=== PATIENT | male | born 1960 | race Caucasian/White ===

== ENCOUNTER 2018-12-04 08:20 | Inpatient (IN) ==
[2018-11-27 11:03] LABS: Basophils # (Auto) 0 K/mcL (0.0-0.3); Basophils % (Auto) 0.4 % (0.0-2.0); Eosinophils # (Auto) 0.1 K/mcL (0.0-0.7); Eosinophils % (Auto) 2.2 % (0.0-7.0); Granulocytes % (Auto) 54.5 % (38.0-78.0); Lymphocytes # (Auto) 1.8 K/mcL (1.5-4.8); Lymphocytes % (Auto) 35.9 % (15.5-49.0); Mean Cell Volume 90.9 fL (80.0-100.0); Mean Corpuscular HGB Conc 32.8 g/dL (31.0-36.0); Monocytes # (Auto) 0.4 K/mcL (0.1-0.9); Platelet Count 278 K/mcL (140-440); RBC 5.03 M/mcL (4.50-5.90); Red Cell Distribution Width 12.7 % (11.5-14.5)
[2018-11-27 11:18] LABS: Blood Urea Nitrogen 9 mg/dl (6-20)
[2018-11-27 11:19] LABS: Appearance,Urine HAZY; Bilirubin,Urine NEG (NEG); Color,Urine YELLOW; Glucose,Urine (UA) NEGATIVE (NEG); Leukocyte Esterase,Urine NEG /uL (NEG); Protein,Urine NEG (NEG); Urine Blood NEG mg/dL (<0.03); Urobilinogen,Urine NEG (NEG)
[~2018-12-04 08:20] MED LIST: 0.9 % SODIUM CHLORIDE 9 ML, KETOROLAC 30 MG, ROPIVACAINE HCL/PF 49.5 ML, EPINEPHrine 0.... IJ SCH; ACETAMINOPHEN 500 MG TABLET PO SCH; CELECOXIB 200 MG CAPSULE PO SCH; PREGABALIN 75 MG CAPSULE PO SCH; ceFAZolin 1 GM VIAL IV SCH; oxyCODONE 10 MG TAB.ER.12H PO SCH
[2018-12-04] MEDS ORDERED: GLYCOPYRROLATE 0.2 MG/ML VIAL IV ONE (11:50)
[2018-12-04] MEDS ORDERED: ROPIVACAINE HCL/PF 20 ML VIAL IJ ONE (11:50)
[2018-12-04] MEDS ORDERED: ONDANSETRON 4 MG/2 ML VIAL IV ONE (11:50)
[2018-12-04] MEDS ORDERED: MIDAZOLAM 5 MG/5 ML VIAL IV ONE (11:50)
[2018-12-04] MEDS ORDERED: TRANEXAMIC ACID 1,000 MG/10 ML VIAL IV ONE ×2 (11:50→13:58)
[2018-12-04] MEDS ORDERED: PROPOFOL 200 MG/20 ML VIAL IV ONE (11:50)
[2018-12-04] MEDS ORDERED: LIDOCAINE HCL/PF 100 MG/5 ML SYRINGE IV ONE (11:50)
[2018-12-04] MEDS ORDERED: DEXAMETHASONE 10 MG/ML VIAL IV ONE (11:50)
[2018-12-04] MEDS ORDERED: GENTAMICIN SULFATE 800 MG/20 ML VIAL IR ONE (12:20)
[2018-12-04] MEDS ORDERED: IPRATROPIUM/ALBUTEROL 3 ML AMPUL.NEB NEB PRN (12:46)
[2018-12-04] MEDS ORDERED: METOPROLOL TARTRATE 5 MG/5 ML VIAL IV PRN (12:46)
[2018-12-04] MEDS ORDERED: METHOCARBAMOL 1,000 MG/10 ML VIAL IV PRN (12:46)
[2018-12-04] MEDS ORDERED: ATROPINE SULFATE 0.4 MG/ML VIAL IV PRN (12:46)
[2018-12-04] MEDS ORDERED: PROMETHAZINE 25 MG/ML VIAL IV PRN (12:46)
[2018-12-04] MEDS ORDERED: fentaNYL 100 MCG/2 ML VIAL IV PRN (12:46)
[2018-12-04] MEDS ORDERED: MEPERIDINE 25 MG/ML SYRINGE IV PRN (12:46)
[2018-12-04] MEDS ORDERED: HYDROmorphone 2 MG/ML VIAL IV PRN ×2 (12:46→13:58)
[2018-12-04] MEDS ORDERED: ONDANSETRON 4 MG/2 ML VIAL IV PRN ×2 (12:46→13:58)
[2018-12-04] MEDS ORDERED: diphenhydrAMINE 50 MG/ML VIAL IV PRN (12:46)
[2018-12-04] MEDS ORDERED: FLUMAZENIL 0.1 MG/ML ML IV PRN (12:46)
[2018-12-04] MEDS ORDERED: NALOXONE HCL 0.4 MG/ML VIAL IV PRN (12:46)
[2018-12-04] MEDS ORDERED: ePHEDrine 50 MG/ML AMPUL IV PRN (12:46)
[2018-12-04] MEDS ORDERED: LACTATED RINGERS 1,000 ML IV SCH (13:00)
--- NOTE | 2018-12-04 13:57 | Brief Operative Note ---
Date of procedure: 12/04/18 Pre-op diagnosis: right knee djd Post-op diagnosis: same Procedure: right knee tka with marleny robot Grafts/Implants: Yes Anesthesia: GETA Complications: none Complications Description: 12/04/18 13:57 none Surgeon: Sridhar Martinez Bit Tapper: Ronald Everett Estimated blood loss (cc): 50 Tourniquet Time (Minutes): 65 Specimens Removed/Pathology: none sent Condition: stable Disposition: PACU
[2018-12-04] MEDS ORDERED: HYDROcodone/APAP 10/325MG TABLET PO PRN (13:58)
[2018-12-04] MEDS ORDERED: BISACODYL 10 MG SUPP.RECT PR PRN (13:58)
[2018-12-04] MEDS ORDERED: MAGNESIUM HYDROXIDE 30 ML ORAL.SUSP PO PRN (13:58)
[2018-12-04] MEDS ORDERED: ACETAMINOPHEN 325 MG TABLET PO PRN (13:58)
[2018-12-04] MEDS ORDERED: POLYETHYLENE GLYCOL 3350 17 GM PACKET PO PRN (13:58)
[2018-12-04] MEDS ORDERED: TEMAZEPAM 15 MG CAPSULE PO PRN (13:58)
[2018-12-04] MEDS ORDERED: FLEETS ADULT ENEMA PR PRN (13:58)
[2018-12-04] MEDS ORDERED: BENZOCAINE/MENTHOL 1 LOZENGE PO PRN (13:58)
--- NOTE | 2018-12-04 14:37 | XRay Report ---
HISTORY: Postop right knee replacement FINDINGS: There is a well-positioned right total knee prosthesis. No fracture is present and there are no abnormal soft tissue calcifications around the joint. There are a few vascular calcifications in the superficial femoral and popliteal arteries. IMPRESSION: Well-positioned knee prosthesis Interpreted and Authenticated by: Jarrod Huynh 12/04/18
--- NOTE | 2018-12-04 15:31 | Operative Note ---
DATE OF OPERATION: 12/04/2018 PREOPERATIVE DIAGNOSIS: Right knee degenerative arthritis medial compartment. POSTOPERATIVE DIAGNOSES: Right knee degenerative arthritis medial compartment with the addition of additional arthritis laterally and IT band syndrome. PROCEDURE: Right total knee arthroplasty with the Jaylon robot and IT band lengthening. SURGEON: Sridhar Martinez M.D. WORK MEASUREMENT ENGINEER: Ronald Everett PA-C. ANESTHESIA: General LMA anesthesia. COMPLICATIONS: None. TOTAL TOURNIQUET TIME: 65 minutes with tourniquet pressure 250 pounds of pressure. ESTIMATED BLOOD LOSS: About 50 mL. IMPLANTS: Cemented [place] Triathlon total knee arthroplasty with a 9 mm poly with a deep dish, as well as a 33 mm patellar button. DESCRIPTION OF PROCEDURE: The patient was brought to the operating room and put to sleep with general LMA anesthesia. Once asleep, the patient had the right leg sterilely prepped and draped in the usual sterile fashion. Timeout performed and confirmed this as the operative site. Preop antibiotics and tranexamic acid had been given. The leg was exsanguinated up to 250 pounds of pressure as it was elevated and then we placed Ioban over the skin. We made midline incision, a midvastus approach. We evaluated all the structures of the knee which revealed severe arthritis in the medial compartment, no significant arthritis of the patellofemoral joint, some grade III and grade IV areas of chondral damage of the sulcus terminalis. We then put two pins above and below the knee, registered the center hip rotation, registered thirty points on the femur and the tibia and intra-articular pins. Medial and lateral malleoli were registered and then we made our bony cuts using the robot after it was registered. We made our bony cuts of the tibia and the femur. These bony fragments were removed, preserving the PCL. We set rotation using the robot and then we irrigated thoroughly. The patient did have a contracture of the knee, about 10 degrees of flexion contracture. We corrected this by 1 mm shortening on the femoral side. We then trialed the components. The tibial baseplate was tapped into place, as well as the femoral component which was drilled for peg holes. We lateralized as far as we could lateral. We then prepared the patella. The knee with a 9 mm poly achieved full range of motion and normal alignment with 2 degrees of varus. We then prepared the patella which measured at 22 mm. This was cut to 13 mm in a horizontal fashion and then we placed the peg holes. We trialed this. It tracked perfectly. We irrigated thoroughly and cemented into place the above-mentioned implants. A 9 mm poly insert with a deep dish was required just to protect from any failure of the PCL. We irrigated thoroughly and removed any excess debris, thorough irrigation again, and then we closed the capsule with #1 Stratafix x2. At this point, I made a second incision laterally over the IT band, about a 1-inch incision. I identified the IT band and a Z-plasty lengthening by poking holes in this and actually releasing it in a Z-fashion was performed using a 10 blade and tenotomy scissors. We irrigated thoroughly. No significant bleeding. We then closed the skin with 2-0 Vicryl. The skin was closed with 2-0 Vicryl and adhesive closure. The patient tolerated this well. There was no complication. Tourniquet time was 65 minutes. RBH:rory Job ID: [id number] Doc ID: [id number] Sridhar Martinez MD
[2018-12-04] MEDS: 0.9 % SODIUM CHLORIDE 10 ML SYRINGE IV SCH ×2 (15:50→23:20)
[2018-12-04] MEDS: 0.45 % SODIUM CHLORIDE 1,000 ML IV SCH (17:59)
[2018-12-04] MEDS: KETOROLAC 30 MG/ML VIAL IV SCH ×2 (17:59→23:19)
[2018-12-04] MEDS ORDERED: ATORVASTATIN 20 MG TABLET PO SCH (21:00)
[2018-12-04] MEDS ORDERED: SENNOSIDES 1 TABLET PO SCH (21:00)
[2018-12-04] MEDS: ceFAZolin 1 GM VIAL IV SCH (21:22)
[2018-12-04] MEDS: ASPIRIN 325 MG ENTERIC COATED TABLET PO SCH (21:23)
[2018-12-04] MEDS: DOCUSATE SODIUM 100 MG CAPSULE PO SCH (21:23)
[2018-12-05] MEDS: 0.45 % SODIUM CHLORIDE 1,000 ML IV SCH (00:10)
[2018-12-05] MEDS: ceFAZolin 1 GM VIAL IV SCH (04:13)
[2018-12-05] MEDS: KETOROLAC 30 MG/ML VIAL IV SCH ×2 (05:52→11:19)
[2018-12-05] MEDS: 0.9 % SODIUM CHLORIDE 10 ML SYRINGE IV SCH (05:53)
--- NOTE | 2018-12-05 07:39 | Orthopedic Progress Note ---
Subjective Patient information: Note initiated : 12/05/18 at 7:38 am Service Date, if different from initiated Date: [] Patient: Nigel Stover 58 y/o M admitted on 12/04/18 for Right Uni Medial Jaylon Knee vs. Total Knee. Chief Complaint: [Pt is stable this morning on post operative day 1 without any significant concerns or complaints. Patients vital signs have remained stable. Patients dressing is dry and is grossly intact from a neurov ascular and motor standpoint. Patients 10 point ROS is otherwise negative. ] Objective Vital signs: Vital Signs Temp Pulse Resp BP BP Pulse Ox 12/05/18 07:35 98.2 F 80 12 105/69 99 12/05/18 03:15 96 12/05/18 03:14 97.6 F 79 12 115/65 96 12/04/18 23:15 98.2 F 92 H 12 109/62 95 12/04/18 21:00 95 12/04/18 19:42 97.4 F 88 12 115/71 96 12/04/18 17:44 86 12/04/18 16:46 86 122/66 97 12/04/18 16:16 91 H 117/68 97 12/04/18 16:00 97.0 F 94 H 16 135/78 12/04/18 15:31 88 126/70 95 12/04/18 15:16 87 131/73 94 12/04/18 15:02 100 H 136/74 91 12/04/18 14:46 105 H 120/72 96 12/04/18 14:30 98.1 F 95 H 16 136/71 95 12/04/18 14:15 97.5 F 94 H 18 134/71 100 12/04/18 14:11 94 H 18 132/72 98 12/04/18 14:06 120 H 20 140/69 96 12/04/18 14:01 98.5 F 116 H 20 118/76 95 12/04/18 13:58 98.1 F 95 H 16 136/71 97 12/04/18 08:45 97.1 F 81 14 145/85 97 Intake and Output 12/04/18 12/05/18 12/05/18 21:59 05:59 13:59 Intake Total 1850 1750 Output Total 1101 1700 Balance 749 50 Intake: IV 1000 Sodium Chloride 0.45% 1,000 ml 1000 @ 100 mls/hr IV .Q10H PAWAN Rx#: [id number] Oral 350 750 IV - Manual Only 1500 Output: Urine Catheter Amount 1100 Void Amount 1700 # of times incontinent of urine 1 Other: Urine Appearance Clear Clear Urine Color Pale Straw Urine Odor Normal Weight 165 lb Intake & Output: Intake & Output 12/04/18 12/05/18 12/05/18 21:59 05:59 13:59 Intake Total 1850 1750 Output Total 1101 1700 Balance 749 50 Weight 165 lb Intake: IV 1000 Sodium Chloride 0.45% 1,000 ml 1000 @ 100 mls/hr IV .Q10H PAWAN Rx#: [id number] Oral 350 750 IV - Manual Only 1500 Output: Urine Catheter Amount 1100 Void Amount 1700 # of times incontinent of urine 1 Other: Urine Appearance Clear Clear Urine Color Pale Straw Urine Odor Normal Incision: Yes healing Incision clean and dry: Yes Dressing: Yes clean Weight bearing status: full Neurological exam IM: Yes motor sensory intact, Yes neurovascular intact Extremities exam IM: Yes Foot pink and warm, Yes neurovascular intact - Labs CBC & BMP: 12/05/18 05:00 11/27/18 09:18 Labs: Orthopedic Labs 11/27/18 09:19 PT 12.5 INR 0.9 12/05/18 11/27/18 05:00 09:19 Hgb 15.0 Hct 40.4 L 45.7 Assessment and Plan (1) Hx of total knee arthroplasty The patient has been educated regarding dressing care, Physical Therapy recommendations, home exercises, restrictions, and follow up appointments. The patient has had all necessary DME prescribed. The patient has remained relative ly stable during their hospital course. Status: Acute
--- NOTE | 2018-12-05 07:42 | Discharge Summary ---
Ortho Discharge - TKA - Patient Instructions Diet: Regular Diet Activity: activity as tolerated, weight bearing as tolerated Total Knee Protocol: For Total Knee: Start ROM YESSENIA with stationary bike or rocking chair. Work on gaining full extension of knee. Posterior dislocation precautions provided. Hip abductor strengthening and gait training instructions provided. Apply Cryocuff as instructed. Dressing Care: May shower in 2 days - Problem Maintenance (1) Hx of total knee arthroplasty Status: Acute - Follow Up Plan Follow Up Appointments: Sridhar Martinez MD [Physician] - 12/19/18 2:20 pm Disposition: Home, Self-Care Prognosis: Good Rehab Potential: Good I certify that the patient requires SNF services: No Overall status at discharge: patient is progressing back to baseline - Orders For Discharge Prescriptions: Aspirin [Ecotrin] 325 mg PO BID #60 tab.ec Docusate Sodium [Colace] 100 mg PO BID #60 capsule HYDROcodone/APAP 10/325MG [[place] 10-325Mg] 1 - 2 tab PO Q4HP PRN #75 tab PRN Reason: Pain Level 3-6
[2018-12-05] MEDS ORDERED: predniSONE 5 MG TABLET PO SCH (08:00)
[2018-12-05] MEDS: ASPIRIN 325 MG ENTERIC COATED TABLET PO SCH (08:52)
[2018-12-05] MEDS: DOCUSATE SODIUM 100 MG CAPSULE PO SCH (08:53)
[2018-12-05] MEDS ORDERED: VITAMIN D3 1,000 UNIT TABLET PO SCH (09:00)
[2018-12-05] MEDS ORDERED: AL HYDROX PO SCH (09:00)
[2018-12-05] MEDS ORDERED: MAGNESIUM CARBONATE PO SCH (09:00)
[2018-12-05] MEDS ORDERED: MAGNESIUM OXIDE 400 MG TABLET PO SCH (09:00)
[2018-12-05] MEDS ORDERED: MULTIVIT,THER IRON,CA,FA & MIN 1 TABLET PO SCH (09:00)
[2018-12-05] MEDS ORDERED: [UNRECOGNIZED DRUG - OTHER] PO SCH (09:00)
[2018-12-05] MEDS ORDERED: BUDESONIDE 3 MG CAP.XL.24H PO SCH (09:00)
[2018-12-05] MEDS ORDERED: CALCITONIN NASAL SPRAY 3.7ML BOTTLE NS SCH ×2 (09:00)
[2018-12-05] MEDS ORDERED: Red Yeast Rice 600 mg Tab PO SCH (09:00)
== END 2018-12-05 12:34 | disposition home or self-care (01) | DRG 470 ==
LOC: SUR 08:20 → MEDSUR 13:58
PROVIDERS: ADMIT Orthopaedic Surgery; ATTEND Orthopaedic Surgery